=== PATIENT | female | born 1950 | race African-American/Black ===

== ENCOUNTER → 2019-06-28 | Outpatient (CLI) | payer MEDICARE, MEDICAID | END | disposition home or self-care (01) | LOC: RAD 13:12 | PROVIDERS: ATTEND Specialist | DX: R05 Cough (principal); I70.0 Atherosclerosis of aorta | CPT/HCPCS: 71046 ==

== ENCOUNTER 2020-07-19 09:59 | Emergency (ER) | payer MEDICARE, OTHER ==
[~2020-07-19] VITALS: Ht 167.6 cm; Wt 109.0 kg
[2020-07-19] MEDS ORDERED: LIDOCAINE HCL/EPINEPHRINE 1%-EPI 1:100,000 20 ML VIAL INFIL ONE (10:45)
[2020-07-19] MEDS ORDERED: DILTIAZEM HCL 5MG/ML 5ML VIAL IV ONE (10:45)
[2020-07-19] MEDS ORDERED: LIDOCAINE HCL/EPINEPHRINE 1%-EPI 1:100,000 50 ML VIAL INFIL SCH (11:00)
[2020-07-19] MEDS: DILTIAZEM HCL 5MG/ML 5ML VIAL IV SCH ×2 (11:22→11:47)
[2020-07-19 11:23] LABS: BASOPHILS % 0.3 % (0.0-2.0); EOSINOPHILS % 0.8 % (0.0-5.0); HEMATOCRIT. 38.2 % (36.0-48.0); HEMOGLOBIN. 11.8 g/dL (12.0-16.0); LYMPHOCYTES % 20.3 % (20.0-50.0); MEAN CORPUSCULAR HEMOGLOBIN 24.6 pg (28.0-32.0); MEAN CORPUSCULAR VOLUME 79.9 fL (81.0-99.0); MEAN PLATELET VOLUME 9.5 fl (7.4-10.4); MONOCYTES % 9.5 % (2.0-8.0); NEUTROPHILS % 69.1 % (40.0-76.0); PLATELET 144 x1000/uL (130-400); RED BLOOD CELL COUNT 4.78 mill/uL (4.2-5.4); RED CELL DISTRIBUTION WIDTH 15.8 % (11.6-14.6)
[2020-07-19 11:30] LABS: CHLORIDE 110 mEq/L (98-107)
[2020-07-19 11:32] LABS: INR 1.3; PARTIAL THROMBOPLASTIN TIME 30.2 sec (23.4-31.0); PROTHROMBIN TIME 13.9 sec (9.6-11.0)
[2020-07-19 11:38] LABS: ETHANOL BLOOD < 10 mg/dL
[2020-07-19] MEDS ORDERED: FLUORESCEIN SODIUM 1MG/STRIP LEFTEYE ONE (12:00)
[2020-07-19] MEDS ORDERED: TETRACAINE 0.5% OPHTH DROPS 4ML LEFTEYE ONE (12:00)
[2020-07-19 14:31] VITALS: BP 110/66
== END 2020-07-19 14:36 | disposition home or self-care (01) ==
LOC: ER 10:14
DX: S01.112A Laceration without foreign body of left eyelid and periocular area, initial encounter (principal); W01.190A Fall on same level from slipping, tripping and stumbling with subsequent striking against furniture, initial encounter; Y93.89 Activity, other specified; Y92.032 Bedroom in apartment as the place of occurrence of the external cause; I10 Essential (primary) hypertension; I48.91 Unspecified atrial fibrillation; G93.89 Other specified disorders of brain
CPT/HCPCS: 12011; 36415; 70450; 70486; 71045; 80053; 80320; 84484; 85025; 85610; 85730; 93005; 96374; 99285; J3490; G0480

== ENCOUNTER 2020-07-24 13:56 | Emergency (ER) | payer MEDICARE, OTHER ==
[~2020-07-24] VITALS: Ht 162.6 cm; Wt 90.0 kg
[2020-07-24 15:00] VITALS: BP 120/76
== END 2020-07-24 15:01 | disposition home or self-care (01) ==
LOC: ER 14:29
DX: S01.112D Laceration without foreign body of left eyelid and periocular area, subsequent encounter (principal); I10 Essential (primary) hypertension; I48.91 Unspecified atrial fibrillation; Z86.73 Personal history of transient ischemic attack (TIA), and cerebral infarction without residual deficits; X58.XXXD Exposure to other specified factors, subsequent encounter
CPT/HCPCS: 99281

== ENCOUNTER 2022-01-23 08:41 | Emergency (ER) | payer MEDICARE, OTHER ==
[~2022-01-23] VITALS: Ht 167.6 cm; Wt 109.0 kg
[2022-01-23] MEDS ORDERED: HYDROCODONE/ACETAMINOPHEN 5/325MG TABLET PO ONE (11:00)
[2022-01-23] MEDS ORDERED: MORPHINE SULFATE 10 MG/ML CPJ IM ONE (13:00)
[2022-01-23] MEDS ORDERED: ONDANSETRON 4MG ODT PO ONE (13:00)
[2022-01-23 13:12] VITALS: BP 128/89
[2022-01-23] MEDS ORDERED: T3 PO (15:47)
== END 2022-01-23 16:21 | disposition home or self-care (01) ==
LOC: ER 08:41
DX: S70.02XA Contusion of left hip, initial encounter (principal); S80.02XA Contusion of left knee, initial encounter; W06.XXXA Fall from bed, initial encounter; Y93.89 Activity, other specified; Y92.013 Bedroom of single-family (private) house as the place of occurrence of the external cause
CPT/HCPCS: 72131; 72192; 73562; 73700; 96372; 99284; J2270; Q0162

== ENCOUNTER 2022-06-27 13:19 | Emergency (ER) | payer MEDICARE, OTHER ==
[~2022-06-27] VITALS: Ht 170.2 cm; Wt 111.0 kg
[~2022-06-27 13:19] MED LIST: T3 PO
[2022-06-27 13:36] VITALS: BP 131/99
== END 2022-06-27 18:58 | disposition left against medical advice (07) ==
LOC: ER 13:32
DX: Z53.21 Procedure and treatment not carried out due to patient leaving prior to being seen by health care provider (principal)

== ENCOUNTER 2023-04-11 11:05 | Emergency (ER) | payer MEDICARE, OTHER ==
[~2023-04-11] VITALS: Ht 167.6 cm; Wt 111.0 kg
[2023-04-11 11:32] VITALS: TEMP 98.6; O2SAT 100
[2023-04-11 12:26] LABS: BASOPHILS % 0.3 % (0.0-2.0); DIFFERENTIAL COMMENT 0; EOSINOPHILS % 1.3 % (0.0-5.0); HEMATOCRIT. 38.5 % (36.0-48.0); HEMOGLOBIN. 11.7 g/dL (12.0-16.0); LYMPHOCYTES % 13.3 % (20.0-50.0); MEAN CORPUSCULAR HEMOGLOBIN 25.5 pg (28.0-32.0); MEAN CORPUSCULAR HGB CONC 30.5 g/dL (31.0-37.0); MEAN CORPUSCULAR VOLUME 83.5 fL (81.0-99.0); MEAN PLATELET VOLUME 9.4 fl (7.4-10.4); MONOCYTES % 8.4 % (2.0-8.0); NEUTROPHILS % 76.7 % (40.0-76.0); PLATELET 155 x1000/uL (130-400); RED BLOOD CELL COUNT 4.61 mill/uL (4.2-5.4); RED CELL DISTRIBUTION WIDTH 17.5 % (11.6-14.6); WHITE BLOOD COUNT 6.5 x1000/uL (4.5-11.0)
[2023-04-11 12:34] LABS: CHLORIDE 114 mEq/L (98-107); INDEX HEMOLYSI 1 (1-3); INDEX ICTERIC 1 (1-4); INDEX LIPEMIC 1 (1-3); POTASSIUM 4.1 mEq/L (3.5-5.1); SODIUM 141 mEq/L (136-145)
[2023-04-11 12:50] LABS: INR 1.3; PROTHROMBIN TIME 13.9 sec (9.6-11.0)
[2023-04-11 12:52] LABS: ALANINE AMINOTRANSFERASE 20 IU/L (13-61); ALBUMIN 3.5 g/dL (3.4-5.0); ASPARTATE AMINOTRANSFERASE 16 IU/L (15-37); BILIRUBIN TOTAL 1.3 mg/dL (0.1-1.0); CALCIUM 8.8 mg/dL (8.5-10.1); CARBON DIOXIDE 22 mEq/L (21-32); GLUCOSE 91 mg/dL (70-105); NT PRO B-TYPE NATRIURETIC PEP 1934 pg/mL (5-125); PROTEIN TOTAL 7.5 g/dL (6.0-8.3); TROPONIN I HIGH SENSITIVITY 6 ng/L (<54); UREA NITROGEN BLOOD 20 mg/dL (7-21)
[2023-04-11] MEDS ORDERED: VANCOMYCIN 1G PREMIX 200 ML IV SCH (13:30)
[2023-04-11] MEDS ORDERED: CEFTRIAXONE 1GM PREMIX 50 ML IV ONE (13:30)
[2023-04-11 13:34] LABS: CLARITY URINE CLEAR (CLEAR); COLOR URINE YELLOW (YELLOW); GLUCOSE URINE 3+ (NEGATIVE); KETONES URINE NEGATIVE (NEGATIVE); LEUKOCYTE ESTERASE URINE NEGATIVE (NEGATIVE); NITRITE URINE NEGATIVE (NEGATIVE); OCCULT BLOOD URINE NEGATIVE (NEGATIVE); PH URINE 5.5 (4.5-8.0); PROTEIN URINE NEGATIVE (NEGATIVE); SPECIFIC GRAVITY URINE 1.019 (1.005-1.030)
[2023-04-11 13:54] LABS: SQUAMOUS EPITHELIAL CELL URINE RARE /lpf (RARE/1+)
[2023-04-11 13:55] LABS: BACTERIA URINE 3+; RBC URINE NONE SEEN /hpf (0-2)
[2023-04-11 15:00] VITALS: BP 133/90; RESP 16
[2023-04-11] MEDS ORDERED: IBUPROFEN 400MG TABLET PO ONE (15:15)
[2023-04-11 15:18] VITALS: PULSE 99
[2023-04-11] MEDS ORDERED: FUROSEMIDE 40MG/4ML VIAL IVP NR (15:30)
[2023-04-11] MEDS ORDERED: SULF1TAB48 MT (16:24)
== END 2023-04-11 17:03 | disposition left against medical advice (07) ==
LOC: ER 11:23 → CANBEDREQ 15:29 → ER 17:03
DX: L03.116 Cellulitis of left lower limb (principal); L03.115 Cellulitis of right lower limb; E78.00 Pure hypercholesterolemia, unspecified; I10 Essential (primary) hypertension
CPT/HCPCS: 80053; 81003; 83880; 85025; 85610; 84484; 36415; 71045; 72192; 73700; 96368; 96365; 96366; 96375; 99285; J0696; J1940; J3370; Z7610 ×3